=== PATIENT | male | born 1990 | race Caucasian/White ===

== ENCOUNTER 2024-05-27 21:32 | Inpatient (IN) | payer BC, OTHER ==
[~2024-05-27] VITALS: Ht 188 cm; Wt 110.0 kg
[2024-05-27 22:00] LABS: Basophils # (auto) 0 10 ^3/uL (0-0.2); Basophils % (auto) 0.3 % (0.0-2.0); Eosinophils # (auto) 0 10 ^3/uL (0-0.8); Eosinophils % (auto) 0.7 % (0.0-7.0); Hematocrit 43.2 % (41.0-53.0); Hemoglobin 14.9 g/dL (13.5-17.5); Lymphocytes # (auto) 2.1 10 ^3/uL (0.4-5.4); Lymphocytes % (auto) 38.9 % (10.0-50.0); Mean Corpuscular Hemoglobin 30.7 pg (28.0-32.0); Mean Corpuscular Hgb Conc. 34.4 g/dL (32.0-36.0); Mean Corpuscular Volume 89.1 fL (80.0-100.0); Monocytes # (auto) 0.4 10 ^3/uL (0-1.3); Monocytes % (auto) 8.3 % (0.0-12.0); Neutrophils # (auto) 2.7 10 ^3/uL (1.6-8.6); Neutrophils % (auto) 51.8 % (37.0-80.0); Nucleated Red Blood Cells % 0.2 %; Platelet Count (auto) 165 10^3/uL (140-450); Red Blood Cells 4.85 10^6/uL (4.5-5.90); Red Cell Distribution Width 13.2 % (11.8-14.3); White Blood Cell 5.3 10^3/uL (4.4-10.8)
[2024-05-27 22:05] VITALS: BP 180/92; PULSE 100; RESP 18; O2SAT 99
[2024-05-27] MEDS: ETOMIDATE (2MG/ML) 20ML VIAL IV ONE (22:16)
[2024-05-27] MEDS: ROCURONIUM 10MG/ML 10ML VIAL IV ONE (22:17)
[2024-05-27] MEDS: SODIUM CHLORIDE 0.9% 1,000 ML IV ONE (22:17)
[2024-05-27 22:26] LABS: Alanine Aminotransferase 18 U/L (7-40); Albumin 4.3 g/dL (3.2-4.8); Alkaline Phosphatase 88 U/L (46-116); Anion Gap 7 (5-15); Aspartate Aminotransferase 22 U/L (13-40); BUN/Creatinine Ratio 9.3 (10.0-20.0); Blood Urea Nitrogen 9 mg/dL (9-23); Calcium 8.7 mg/dL (8.7-10.4); Carbon Dioxide 23 mmol/L (20-31); Chloride 110 mmol/L (98-107); Creatine Kinase IFCC 206 U/L (46-171); Glucose 160 mg/dL (74-106); Lipase 37 U/L (12-53); Potassium 3.3 mmol/L (3.5-5.1); Sodium 140 mmol/L (136-145)
[2024-05-27 22:27] LABS: Bilirubin, Total 0.3 mg/dL (0.2-1.0); Total Protein 6.5 g/dL (5.7-8.2)
[2024-05-27 22:31] LABS: Salicylate < 3.0 mg/dL (-30)
[2024-05-27 22:36] LABS: Lactic Acid w/Reflex 2.2 mmol/L (0.4-2.0)
[2024-05-27] MEDS: PROPOFOL 100 ML IV ONE (22:41)
[2024-05-27 22:44] LABS: Blood Alcohol 251.6 mg/dL (<10)
[2024-05-27 22:59] LABS: Urine Bacteria FEW /hpf (None Seen); Urine Blood Negative /uL (Negative); Urine Clarity Clear (Clear); Urine Color Colorless (Yellow); Urine Protein, UAD Negative (Negative); Urine Specific Gravity 1.005 (1.001-1.035); Urine Urobilinogen Normal (Negative); Urine WBC 1 /hpf (0 - 3); Urine pH 5.5 (5.0-9.0)
[2024-05-27 23:00] VITALS: PULSE 110; RESP 16; O2SAT 95
[2024-05-27 23:10] LABS: Amphetamine Screen, Urine Neg (NEGATIVE); Barbiturate Scree,Urine Neg (NEGATIVE); Benzodiazephine Screen, Urine Neg (NEGATIVE); Cannabinoid Screen, Urine Neg (NEGATIVE); Cocaine Screen, Urine Neg (NEGATIVE); Opiate Scree,Urine Neg (NEGATIVE); Phencyclidine Screen, Urine Neg (NEGATIVE)
[2024-05-27] MEDS ORDERED: D5W 5% IV SCH (23:30)
[2024-05-27] MEDS ORDERED: ACETYLCYSTEINE IV ONE ×2 (23:30)
[2024-05-27] MEDS ORDERED: D5W 5% IV ONE ×2 (23:30)
[2024-05-27] MEDS ORDERED: ACETYLCYSTEINE IV SCH (23:30)
[2024-05-27] MEDS: ACETYLCYSTEINE IV ONE (23:45)
[2024-05-27] MEDS: D5W 5% IV ONE (23:45)
[2024-05-28] VITALS (48 sets, daily range): BP systolic 88–143; BP diastolic 42–69; PULSE 87–135; RESP 10–29; TEMP 96.3–101.1; O2SAT 97–100
[2024-05-28] MEDS: ACETYLCYSTEINE IV ONE ×3 (00:29→02:35)
[2024-05-28] MEDS: D5W 5% IV ONE ×3 (00:29→02:35)
[2024-05-28] MEDS: ROCURONIUM 10MG/ML 10ML VIAL IV ONE (00:29)
[2024-05-28] MEDS: PROPOFOL 100 ML IV SCH (00:33)
[2024-05-28] MEDS: NOREPINEPHRINE 8 MG/250ML KIT 250 ML IV SCH (00:34)
[2024-05-28 00:43] LABS: Base Excess -5.5 mmol/L (-2.0-3.0)
[2024-05-28] MEDS: ACETYLCYSTEINE 6GM/30ml (200mg/ml) IV SOLN 30ML IV ONE ×2 (00:59→02:52)
[2024-05-28] MEDS: fentaNYL Drip 2500mCg/250mlNS 250 ML IV SCH (01:30)
[2024-05-28] MEDS: MIDAZOLAM DRIP 50 mg/50mL 50 ML IV SCH (01:30)
[2024-05-28] MEDS: CEFEPIME 2GM/50ML NS 50 ML IV ONE (02:08)
[2024-05-28] MEDS ORDERED: ONDANSETRON HCL 4 MG/2 ML VIAL IV PRN (03:45)
[2024-05-28 04:26] LABS: Basophils # (auto) 0 10 ^3/uL (0-0.2); Basophils % (auto) 0.3 % (0.0-2.0); Eosinophils # (auto) 0 10 ^3/uL (0-0.8); Eosinophils % (auto) 0.2 % (0.0-7.0); Hematocrit 40.5 % (41.0-53.0); Hemoglobin 14.2 g/dL (13.5-17.5); Lymphocytes # (auto) 1.3 10 ^3/uL (0.4-5.4); Lymphocytes % (auto) 27.9 % (10.0-50.0); Mean Corpuscular Hgb Conc. 35.1 g/dL (32.0-36.0); Mean Corpuscular Volume 88.2 fL (80.0-100.0); Monocytes # (auto) 0.4 10 ^3/uL (0-1.3); Monocytes % (auto) 8.5 % (0.0-12.0); Neutrophils % (auto) 63.1 % (37.0-80.0); Nucleated Red Blood Cells % 0.2 %; Platelet Count (auto) 154 10^3/uL (140-450); Red Blood Cells 4.59 10^6/uL (4.5-5.90); White Blood Cell 4.8 10^3/uL (4.4-10.8)
[2024-05-28] MEDS: D5W 5% IV SCH ×2 (04:26→13:13)
[2024-05-28] MEDS: ACETYLCYSTEINE IV SCH ×2 (04:26→13:13)
[2024-05-28 04:43] LABS: Alanine Aminotransferase 18 U/L (7-40); Albumin 4.2 g/dL (3.2-4.8); Alkaline Phosphatase 83 U/L (46-116); Anion Gap 10 (5-15); Aspartate Aminotransferase 17 U/L (13-40); BUN/Creatinine Ratio 9.3 (10.0-20.0); Blood Urea Nitrogen 8 mg/dL (9-23); Calcium 8.5 mg/dL (8.7-10.4); Carbon Dioxide 21 mmol/L (20-31); Chloride 110 mmol/L (98-107); Glucose 135 mg/dL (74-106); Sodium 141 mmol/L (136-145)
[2024-05-28 04:44] LABS: Bilirubin, Total 0.4 mg/dL (0.2-1.0); Total Protein 6.3 g/dL (5.7-8.2)
[2024-05-28] MEDS ORDERED: MORPHINE SULFATE INJ 2 MG/ml SYRG IV PRN (04:45)
[2024-05-28] MEDS ORDERED: NITROGLYCERIN 0.4 MG SL TAB SL PRN (04:45)
[2024-05-28] MEDS ORDERED: ACETYLCYSTEINE IV SCH (05:00)
[2024-05-28] MEDS ORDERED: D5W 5% IV SCH (05:00)
[2024-05-28] MEDS: POTASSIUM CHL 20MEQ/100ML 100 ML IV ONE (05:29)
[2024-05-28 08:10] LABS: Base Excess -4.9 mmol/L (-2.0-3.0)
[2024-05-28] MEDS: AZITHROMYCIN 500MG/ 250ML 250 ML IV SCH (10:22)
[2024-05-28 10:25] LABS: Alanine Aminotransferase 18 U/L (7-40); Albumin 4.1 g/dL (3.2-4.8); Alkaline Phosphatase 86 U/L (46-116); Anion Gap 9 (5-15); Aspartate Aminotransferase 16 U/L (13-40); BUN/Creatinine Ratio 7.5 (10.0-20.0); Bilirubin, Total 0.7 mg/dL (0.2-1.0); Blood Urea Nitrogen 6 mg/dL (9-23); Calcium 9.2 mg/dL (8.7-10.4); Carbon Dioxide 21 mmol/L (20-31); Chloride 110 mmol/L (98-107); Glucose 124 mg/dL (74-106); Potassium 3.7 mmol/L (3.5-5.1); Sodium 140 mmol/L (136-145); Total Protein 6.4 g/dL (5.7-8.2)
[2024-05-28] MEDS: PIPERACILLIN-TAZOB 3.375GM 100 ML IV ONE (14:55)
[2024-05-28] MEDS: FOLIC ACID 1 MG, MAGNESIUM SULF SDV 50% 8 MEQ, MULTIPLE VITAMIN 10 ML, THIAMINE INJ 100... INJ SCH (18:28)
[2024-05-28] MEDS ORDERED: ACETAMINOPHEN IV 1000 MG/100ML (10MG/ML) IV ONE (21:30)
[2024-05-28] MEDS: PIPERACILLIN-TAZOB 3.375GM 100 ML IV SCH (21:45)
[2024-05-29] VITALS (108 sets, daily range): BP systolic 87–126; BP diastolic 39–65; PULSE 77–97; RESP 18; TEMP 95.2–99.5; O2SAT 96–100
[2024-05-29 05:00] LABS: Basophils # (auto) 0 10 ^3/uL (0-0.2); Basophils % (auto) 0.2 % (0.0-2.0); Eosinophils # (auto) 0 10 ^3/uL (0-0.8); Eosinophils % (auto) 0.9 % (0.0-7.0); Hematocrit 38.5 % (41.0-53.0); Hemoglobin 13.7 g/dL (13.5-17.5); Lymphocytes # (auto) 0.9 10 ^3/uL (0.4-5.4); Lymphocytes % (auto) 22.6 % (10.0-50.0); Mean Corpuscular Hemoglobin 31.8 pg (28.0-32.0); Mean Corpuscular Hgb Conc. 35.6 g/dL (32.0-36.0); Mean Corpuscular Volume 89.4 fL (80.0-100.0); Monocytes # (auto) 0.4 10 ^3/uL (0-1.3); Monocytes % (auto) 9.9 % (0.0-12.0); Neutrophils # (auto) 2.7 10 ^3/uL (1.6-8.6); Neutrophils % (auto) 66.4 % (37.0-80.0); Platelet Count (auto) 120 10^3/uL (140-450); Red Blood Cells 4.31 10^6/uL (4.5-5.90); Red Cell Distribution Width 13.2 % (11.8-14.3); White Blood Cell 4.1 10^3/uL (4.4-10.8)
[2024-05-29 05:18] LABS: Chloride 109 mmol/L (98-107); Potassium 3.6 mmol/L (3.5-5.1); Sodium 140 mmol/L (136-145)
[2024-05-29 05:19] LABS: Anion Gap 5 (5-15); Calcium 8.8 mg/dL (8.7-10.4); Carbon Dioxide 26 mmol/L (20-31)
[2024-05-29 05:24] LABS: BUN/Creatinine Ratio 6.1 (10.0-20.0); Blood Urea Nitrogen 5 mg/dL (9-23); Glucose 108 mg/dL (74-106)
[2024-05-29 06:54] LABS: Base Excess -3.4 mmol/L (-2.0-3.0)
[2024-05-30] VITALS (94 sets, daily range): BP systolic 107–141; BP diastolic 53–85; PULSE 74–107; RESP 12–30; TEMP 98.2–99.9; O2SAT 83–100
[2024-05-30 10:39] LABS: Alanine Aminotransferase 25 U/L (7-40); Albumin 3.8 g/dL (3.2-4.8); Alkaline Phosphatase 91 U/L (46-116); Anion Gap 6 (5-15); Aspartate Aminotransferase 85 U/L (13-40); BUN/Creatinine Ratio 8.6 (10.0-20.0); Bilirubin, Total 0.6 mg/dL (0.2-1.0); Blood Urea Nitrogen 8 mg/dL (9-23); Carbon Dioxide 28 mmol/L (20-31); Chloride 107 mmol/L (98-107); Glucose 90 mg/dL (74-106); Potassium 3.8 mmol/L (3.5-5.1); Sodium 141 mmol/L (136-145); Total Protein 5.9 g/dL (5.7-8.2)
[2024-05-30 10:49] LABS: Base Excess -0.6 mmol/L (-2.0-3.0)
[2024-05-30 10:53] LABS: Basophils # (auto) 0 10 ^3/uL (0-0.2); Basophils % (auto) 0.1 % (0.0-2.0); Eosinophils # (auto) 0 10 ^3/uL (0-0.8); Eosinophils % (auto) 0.7 % (0.0-7.0); Hemoglobin 13.6 g/dL (13.5-17.5); Lymphocytes # (auto) 0.9 10 ^3/uL (0.4-5.4); Lymphocytes % (auto) 14.6 % (10.0-50.0); Mean Corpuscular Hemoglobin 30.8 pg (28.0-32.0); Mean Corpuscular Hgb Conc. 34.1 g/dL (32.0-36.0); Mean Corpuscular Volume 90.1 fL (80.0-100.0); Monocytes # (auto) 0.4 10 ^3/uL (0-1.3); Neutrophils # (auto) 4.9 10 ^3/uL (1.6-8.6); Neutrophils % (auto) 78.6 % (37.0-80.0); Nucleated Red Blood Cells % 0.1 %; Platelet Count (auto) 140 10^3/uL (140-450); Red Blood Cells 4.44 10^6/uL (4.5-5.90); Red Cell Distribution Width 13.3 % (11.8-14.3); White Blood Cell 6.2 10^3/uL (4.4-10.8)
[2024-05-30] MEDS ORDERED: MAGNESIUM OXIDE 400 MG TAB PO ONE (18:30)
[2024-05-30] MEDS ORDERED: THIAMINE HCL 100 MG TAB PO ONE (18:30)
[2024-05-30] MEDS ORDERED: FOLIC ACID 1 MG TAB PO ONE (18:30)
[2024-05-30] MEDS ORDERED: MULTIPLE VITAMINS W/ MINERALS TAB PO ONE (18:30)
[2024-05-31 05:10] VITALS: BP 121/57; PULSE 86; RESP 18; TEMP 98.4; O2SAT 94
[2024-05-31 06:09] LABS: Basophils # (auto) 0 10 ^3/uL (0-0.2); Basophils % (auto) 0.1 % (0.0-2.0); Eosinophils # (auto) 0.1 10 ^3/uL (0-0.8); Eosinophils % (auto) 1.3 % (0.0-7.0); Hematocrit 39.4 % (41.0-53.0); Lymphocytes # (auto) 1.8 10 ^3/uL (0.4-5.4); Lymphocytes % (auto) 31.7 % (10.0-50.0); Mean Corpuscular Hemoglobin 31.3 pg (28.0-32.0); Mean Corpuscular Hgb Conc. 35.5 g/dL (32.0-36.0); Mean Corpuscular Volume 88.2 fL (80.0-100.0); Monocytes # (auto) 0.4 10 ^3/uL (0-1.3); Neutrophils # (auto) 3.4 10 ^3/uL (1.6-8.6); Neutrophils % (auto) 59.9 % (37.0-80.0); Nucleated Red Blood Cells % 0.2 %; Platelet Count (auto) 154 10^3/uL (140-450); Red Blood Cells 4.47 10^6/uL (4.5-5.90); Red Cell Distribution Width 12.9 % (11.8-14.3); White Blood Cell 5.6 10^3/uL (4.4-10.8)
[2024-05-31 06:21] LABS: Anion Gap 7 (5-15); Calcium 9.3 mg/dL (8.7-10.4); Carbon Dioxide 26 mmol/L (20-31); Chloride 106 mmol/L (98-107); Potassium 3.7 mmol/L (3.5-5.1); Sodium 139 mmol/L (136-145)
[2024-05-31 06:26] LABS: Glucose 89 mg/dL (74-106)
[2024-05-31 06:27] LABS: BUN/Creatinine Ratio 8.1 (10.0-20.0); Blood Urea Nitrogen 6 mg/dL (9-23); Magnesium 2.1 mg/dL (1.6-2.6)
[2024-05-31 06:29] LABS: Phosphorus 3.4 mg/dL (2.4-5.1)
[2024-05-31] MEDS: FOLIC ACID 1 MG TAB PO SCH (08:42)
[2024-05-31] MEDS: THIAMINE HCL 100 MG TAB PO SCH (08:42)
[2024-05-31] MEDS: MULTIPLE VITAMINS W/ MINERALS TAB PO SCH (08:42)
[2024-05-31] MEDS: MAGNESIUM OXIDE 400 MG TAB PO SCH (08:42)
[2024-05-31 09:03] VITALS: BP 132/57; PULSE 94; RESP 20; TEMP 98.2; O2SAT 94
[2024-05-31 09:55] LABS: Base Excess 1.8 mmol/L (-2.0-3.0)
[2024-05-31 13:00] VITALS: BP 123/76; PULSE 84; RESP 18; TEMP 98; O2SAT 96
[2024-05-31] MEDS: NICOTINE 14 MG/24HR TOPICAL PATCH TD ONE (16:02)
[2024-05-31] MEDS: LORazepam 2MG/ML-1ML VIAL IV ONE ×2 (16:02→21:03)
[2024-05-31 16:37] VITALS: BP 128/80; PULSE 89; RESP 18; TEMP 98; O2SAT 96
[2024-05-31 20:10] VITALS: RESP 18
[2024-06-01 05:00] VITALS: BP 127/83; PULSE 84; RESP 18; TEMP 97.8; O2SAT 96
[2024-06-01 06:58] LABS: Anion Gap 8 (5-15); Carbon Dioxide 23 mmol/L (20-31); Chloride 107 mmol/L (98-107); Sodium 138 mmol/L (136-145)
[2024-06-01 06:59] LABS: Calcium 9.9 mg/dL (8.7-10.4)
[2024-06-01 07:04] LABS: BUN/Creatinine Ratio 9.4 (10.0-20.0); Blood Urea Nitrogen 8 mg/dL (9-23); Glucose 97 mg/dL (74-106)
[2024-06-01] MEDS: LORazepam 2MG/ML-1ML VIAL IV PRN (07:08)
[2024-06-01] MEDS ORDERED: NICOTINE 14 MG/24HR TOPICAL PATCH TD SCH (10:00)
== END 2024-06-01 08:16 | disposition left against medical advice (07) | DRG 871 ==
LOC: EDUNIT# 21:32 → EDBD 21:32 → ER 21:32 → OVERFLOW 05-28 04:43 → ICU WEST 05-28 15:38 → TELE-CENTR 05-30 21:48
PROVIDERS: ADMIT Internal Medicine; ATTEND Internal Medicine
PROC: 0BH17EZ Insertion of Endotracheal Airway into Trachea, Via Natural or Artificial Opening (ICD-10-PCS; principal; 2024-05-27)
PROC: 5A1945Z Respiratory Ventilation, 24-96 Consecutive Hours (ICD-10-PCS; 2024-05-27)
DX: A41.9 Sepsis, unspecified organism (principal); G92.8 Other toxic encephalopathy; J96.01 Acute respiratory failure with hypoxia; J69.0 Pneumonitis due to inhalation of food and vomit; R65.21 Severe sepsis with septic shock; E87.20 Acidosis, unspecified; T39.1X2A Poisoning by 4-Aminophenol derivatives, intentional self-harm, initial encounter; Z53.29 Procedure and treatment not carried out because of patient's decision for other reasons; E87.6 Hypokalemia; F10.129 Alcohol abuse with intoxication, unspecified; F20.9 Schizophrenia, unspecified; F17.210 Nicotine dependence, cigarettes, uncomplicated; R73.9 Hyperglycemia, unspecified; Z79.899 Other long term (current) drug therapy; Y90.8 Blood alcohol level of 240 mg/100 ml or more; Y92.89 Other specified places as the place of occurrence of the external cause
CPT/HCPCS: 36415; 36600; 71045; 80048; 80053; 80307; 80320; 80329; 81001; 82550; 82805; 82962; 83036; 83605; 83690; 83735; 83880; 84100; 84484; 85025; 87081; 92610; 94002; 94003; 97163; 99291; 99292; G0378; J0131; J0692; J2543; J2704; J3480; J7060